=== PATIENT | female | born 1990 | race Caucasian/White ===

== ENCOUNTER 2016-02-16 17:23 | Emergency (ER) | payer BC, OTHER ==
[~2016-02-16] VITALS: Ht 170.2 cm; Wt 80.4 kg
[2016-02-16 17:28] VITALS: BP 135/79; PULSE 102; TEMP 36.7; O2SAT 97; Ht 170.2 cm; Wt 80.4 kg
[2016-02-16] MEDS ORDERED: CHOL1000 PO (17:36)
[2016-02-16] MEDS ORDERED: MULT-506 PO (17:36)
[2016-02-16] MEDS ORDERED: OMEG10007 PO (17:36)
--- NOTE | 2016-02-16 18:43 | EMERGENCY ROOM VISIT NOTE ---
History First contact with patient: 17:41 Chief Complaint: OTHER COMPLAINT Stated Complaint: BLUE HANDS/FINGERS,TINGLY IN LT FINGERS/ARM History of Present Illness The patient is a 26 year old female who presents to the Emergency Room with complaints of a cold and tingly sensation in her left forearm and hand. 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 The patient reports that at around 2 PM, she started to develop the above symptoms. The patient has not noticed any bruising or swelling about the elbow. The patient is [id number], and denies any pain. Review of Systems 6 system review was performed and was negative except for pertinent positives and negatives as indicated in history of present illness Past Medical/Surgical History Medical Problems: (1) Idiopathic Scoliosis (2) Polycystic ovarian syndrome Surgical Problems: (1) History of appendectomy Family History FH: cancer FH: diabetes mellitus FH: heart disease FH: hypertension Social History Smoking Status: Never Smoker Alcohol Use: none Marital Status: Occupation Status: employed Current/Historical Medications Scheduled Cholecalciferol (Vitamin D3), 1 TAB PO DAILY Fish Oil ([place]-3), 2 CAP PO DAILY Multivitamin (Multivitamin), 1 TAB PO DAILY Allergies Coded Allergies: No Known Allergies (Verified , 02/16/16) PER NURSING Physical Exam Vital Signs Date Time Temp Pulse Resp B/P Pulse Ox O2 Delivery O2 Flow Rate FiO2 02/16/16 17:28 36.7 102 20 135/79 97 Room Air Pain Rating (0-10): 0 Physical Exam CONSTITUTIONAL: Healthy and well nourished. Alert and oriented X 3 with positive affect. The patient does appear anxious. HEENT: Normocephalic, atraumatic. Pupils equal, round and reactive. NECK: Full active range of motion without discomfort. RESPIRATORY: Clear to auscultation bilaterally with no wheezing, crackles, rhonchi or stridor. CARDIOVASCULAR: Regular rate and rhythm with no murmurs, rubs or gallops. MUSCULOSKELETAL: Examination of the left upper extremity does not show any evidence for ecchymosis or edema of the antecubital space, elbow or proximal forearm. It is noted that the patient has a mottled appearance of bilateral hands with a capillary refill of approximately 4 seconds. She has no tenderness to palpation of the hand or fingers. She has full flexion and extension without discomfort. INTEGUMENTARY: No rash or other significant dermatologic conditions noted. NEUROLOGIC: No focal neurologic deficits noted. Bilateral hands and fingers are sensory intact. Medical Decision & Procedures ED Course Patient history and physical exam were performed. Nurse's notes were reviewed. Vital signs were reviewed and were normal. The patient was advised that I do not feel that her symptoms are being caused by the earlier venipuncture. She has no edema or ecchymosis near the site. I also showed her the discoloration of both hands. I asked if she has had any prior history of connective tissue disease or Raynaud's disease, and the patient denies. She denies any prior history of hand or feet pain and cold temperatures, or when holding cold beverages. The patient was encouraged to intermittently apply heat to her hands , and follow up with her PCP if the discoloration persists. She was instructed to return to the emergency department for progressively worsening pain, numbness or significant worsening appearance of the hands. The patient was happy with plan of care, and voiced understanding of all discharge instructions. Medical Decision See previous section Impression Primary Impression: Paresthesia of left upper extremity Additional Impression: Bilateral hand discoloration Departure Information Dispostion Home / Self-Care Condition GOOD Forms HOME CARE DOCUMENTATION FORM, IMPORTANT VISIT INFORMATION Patient Instructions A Signature Page, [email or web address] Additional Instructions Intermittently apply ice to the elbow region, and heat to both hands. Follow-up with your family doctor for any persistent symptoms, especially with discoloration of the fingers as they were today in the emergency department. Return to the emergency department for progressively worsening pain or further darkening appearance of the hands.
== END 2016-02-16 18:00 | disposition home or self-care (01) ==
LOC: C.EDB 17:24 → C.EDD 18:00
DX: R20.2 Paresthesia of skin (principal); L98.9 Disorder of the skin and subcutaneous tissue, unspecified; M41.20 Other idiopathic scoliosis, site unspecified; E28.2 Polycystic ovarian syndrome; Z80.9 Family history of malignant neoplasm, unspecified; Z83.3 Family history of diabetes mellitus; Z82.49 Family history of ischemic heart disease and other diseases of the circulatory system

== ENCOUNTER 2019-01-21 11:50 | Inpatient (IN) ==
[2019-01-21] MEDS ORDERED: miSOPROStoL 25 MCG TAB PV ONE (13:26)
--- NOTE | 2019-01-21 13:36 | Obstetrical Progress Note ---
Date of Service January 21, 2019 Subjective Admit Note 28 F P1001 admitted for induction of labor for post dates . Her GBS is negative. FHT Cat 1 not makayla. Cervix is 1/50/-3/vertex/posterior/soft. EFW [address] Cytotec 25 mcg for induction and ripening of cervix. Results & Data Vital Signs (Past 12 Hours) Vital Signs Temp Pulse Resp BP 01/21/19 12:23 103 H 125/81 01/21/19 12:12 36.8 C 110 H 20 133/87
--- NOTE | 2019-01-21 13:52 | Obstetrical Progress Note ---
Date of Service January 21, 2019 Subjective Cytotec 25 mcg placed vaginally FHT Cat 1 Results & Data Vital Signs (Past 12 Hours) Vital Signs Temp Pulse Resp BP 01/21/19 12:23 103 H 125/81 01/21/19 12:12 36.8 C 110 H 20 133/87
[2019-01-21 14:18] LABS: Hematocrit (blood only) 33.5 % (37-47); Hemoglobin 11.1 g/dL (12.0-16.0); Mean Corpuscular Hemoglobin 26.1 pg (25-34); Mean Corpuscular Volume 78.8 fL (80-100); RDW Coefficient of Variation 14.3 % (11.5-14.5); RDW Standard Deviation 40.6 fL (36.4-46.3); Red Blood Count 4.25 M/uL (4.2-5.4)
[2019-01-21 14:20] LABS: Mean Corpuscular Hgb Conc 33.1 g/dL (32-36); Platelet Count 143 K/uL (130-400)
[2019-01-21 14:21] LABS: Platelet Estimate Decreased (Normal)
--- NOTE | 2019-01-21 20:15 | Obstetrical Progress Note ---
Date of Service January 21, 2019 Physical Exam Genitourinary: Manual OB Exam: + cervical dilation 3 cm, + cervical effacement 50% and + station -2 OB Exam Monitor Tracing: + external FHT monitor used, + external uterine monitor used and + category I Results & Data Vital Signs (Past 12 Hours) Vital Signs Temp Pulse Resp BP 01/21/19 19:30 20 01/21/19 18:00 20 01/21/19 17:33 69 129/81 01/21/19 17:31 36.7 C 20 01/21/19 16:20 20 01/21/19 15:00 36.6 C 18 01/21/19 14:55 36.6 C 90 20 127/85 01/21/19 14:54 88 132/91 01/21/19 12:23 103 H 125/81 01/21/19 12:12 36.8 C 110 H 20 133/87
[2019-01-21] MEDS: LACTATED RINGER'S 1,000 ML IV PRN (23:07)
[2019-01-21] MEDS ORDERED: ePHEDrine sulfate 50 MG/ML AMP ONE (23:13)
[2019-01-21] MEDS ORDERED: fentaNYL citrate 100 MCG/2 ML VIAL ONE (23:13)
[2019-01-21] MEDS ORDERED: fentaNYL 2MCG/ML ROPIV 1.25MG/ML 100 ML BAG EPI ONE (23:14)
[2019-01-21] MEDS ORDERED: BUPIVACAINE 0.25% 30 ML VIAL ONE (23:14)
[2019-01-21] MEDS ORDERED: NALOXONE HCL 1 MG in SODIUM CHLORIDE 0.9% 1000ML 1,000 ML IV PRN (23:53)
[2019-01-21] MEDS ORDERED: ePHEDrine sulfate 50 MG/ML AMP IV PRN (23:53)
[2019-01-21] MEDS ORDERED: NALBUPHINE HCL INJ 10 MG/ML AMP IV PRN (23:53)
[2019-01-21] MEDS ORDERED: DiphenhydrAMINE HCL 50 MG/ML VIAL IV PRN (23:53)
[2019-01-21] MEDS ORDERED: ONDANSETRON INJ 2 MG/ML 2 ML VIAL IV PRN (23:53)
[2019-01-21] MEDS ORDERED: NALOXONE HCL 0.4 MG/1 ML VIAL/CARP IV PRN (23:53)
[2019-01-21] MEDS ORDERED: fentaNYL 2MCG/ML ROPIV 1.25MG/ML 100 ML BAG EPI PRN (23:53)
--- NOTE | 2019-01-21 23:53 | Anesthesiology Consultation ---
Date of Service January 21, 2019 Assessment & Plan Chart Review Chart Review: Patient NOT seen in Pre Admission Testing and Acceptable Risk for Labor Epidural Consults Requested none ASA ASA2 Proposed Anesthesia Anesthesia Type: Labor Epidural and CSE Risk / Benefits Reviewed With: PT / POA / Parent / Guardian, Accepts Plan and Informed Consent Obtained History Height/Weight Height: 5 ft 7.5 in Weight: 101.605 kg Allergies Allergy/AdvReac Type Severity Reaction Status Date / Time No Known Allergies Allergy Verified 08/10/17 14:43 Medications Home Medications Medication Instructions Recorded Confirmed Last Taken aspirin [Aspirin Low Dose] 81 mg PO DAILY 01/21/19 01/21/19 01/21/19 05:30 vit-iron fum-folic ac 1 tab PO DAILY 01/21/19 01/21/19 01/21/19 05:00 [ Vitamin] Active Medications Generic Name Dose Route Start Last Admin Trade Name Freq PRN Reason Stop Dose Admin Lactated Ringer's 1,000 mls @ 125 mls/hr 01/21/19 13:26 01/21/19 23:07 Lr IV 01/23/19 13:25 999 mls/hr .Q8H PRN Administration L&D Protocol Protocol NPO Date Last Intake of Fluids: 01/21/19 Time Last Intake of Fluids: 23:30 Date Last Intake of Solids: 01/21/19 Time Last Intake of Solids: 11:00 Past Medical History Medical History (Updated 01/21/19 @ 12:17 by Nina Alcocer RN) History of fracture of lower leg Exercise / Class Metabolic Activity II 4-5 Yardwork/Stairs/Walk up hill Past Anesthesia History No Hx of Anesthesia Complications and No Family Hx of Anesthesia Complications History of PONV No Hx of PONV and No Hx of Motion Sickness Social History Smoking Status: Never smoker Do You Dip or Chew Tobacco: No Hx Alcohol Use: No Hx Substance Use: No Review of Systems no chest pain or sob Physical Exam Vital Signs Last Vital Signs Temp 36.6 C 01/21/19 22:58 Pulse 85 01/21/19 23:50 Resp 18 01/21/19 22:58 BP 118/73 01/21/19 22:58 Pulse Ox 99 01/21/19 23:50 ENMT Mouth: no TMJ abnormality Thyromental Distance: > or= 3.5 Finger Breadths Mallampati Class: II Neck normal visual inspection Respiratory normal respiratory effort Auscultation: lungs clear to auscultation bilaterally Cardiovascular Rate/Rhythm: regular rate and regular rhythm Musculoskeletal Spine: normal cervical ROM Neurologic moves all extremities Psychiatric Orientation: alert and oriented x 3 Testing Laboratory Results 01/21/19 13:40
[2019-01-22] MEDS: LACTATED RINGER'S 1,000 ML IV PRN (00:24)
--- NOTE | 2019-01-22 00:41 | Obstetrical Progress Note ---
Date of Service January 22, 2019 Physical Exam Genitourinary: Manual OB Exam: + cervical dilation 4 cm, + cervical effacement 70%, + station -2 and + amniotic fluid clear OB Exam Monitor Tracing: + external FHT monitor used, + external uterine monitor used, + category I and + normal FHT variability AROM with amni-hook clear fluid Results & Data Vital Signs (Past 12 Hours) Vital Signs Temp Pulse Resp BP Pulse Ox 01/22/19 00:37 99 H 126/66 01/22/19 00:35 103 H 100 01/22/19 00:34 81 124/72 01/22/19 00:31 85 132/62 01/22/19 00:30 103 H 100 01/22/19 00:25 82 100 01/22/19 00:20 36.7 C 86 18 100 01/22/19 00:18 84 137/70 01/22/19 00:16 94 H 111/66 01/22/19 00:15 91 H 100 01/22/19 00:13 84 113/58 L 01/22/19 00:10 94 H 100 01/22/19 00:08 96 H 155/73 H 01/22/19 00:05 72 100 01/22/19 00:01 98 H 91 01/22/19 00:00 100 H 95 01/21/19 23:59 96 H 154/86 H 01/21/19 23:55 88 99 01/21/19 23:50 85 99 01/21/19 23:45 93 H 100 01/21/19 23:40 80 99 01/21/19 23:35 80 100 01/21/19 23:30 84 100 01/21/19 22:58 36.6 C 78 18 118/73 01/21/19 21:49 85 125/70 01/21/19 21:30 18 01/21/19 20:14 76 149/94 H 01/21/19 20:00 36.9 C 18 01/21/19 19:30 20 01/21/19 18:00 20 01/21/19 17:33 69 129/81 01/21/19 17:31 36.7 C 20 01/21/19 16:20 20 01/21/19 15:00 36.6 C 18 01/21/19 14:55 36.6 C 90 20 127/85 01/21/19 14:54 88 132/91
[2019-01-22] MEDS: OXYTOCIN 30 UNITS/500 ML BAG IV PRN ×2 (05:09→05:57)
--- NOTE | 2019-01-22 05:30 | Delivery Summary ---
Vaginal Delivery Summary Date of Service January 22 2019 Vaginal Delivery Summary Delivery Note Live male FLORENCIO over intact perineum with delayed cord clamping with Apgars 8/9 weight pending. Cord blood obtained and placenta delivered spontaneously and intact. Small second degree tear repaired with 4/0 Vicryl suture. EBL 250 ml. Final sponge needle and instrument count are correct. Mom and baby stable.
[2019-01-22] MEDS ORDERED: HYDROCORTISONE ACETATE 25 MG SUPP PR PRN (06:09)
[2019-01-22] MEDS ORDERED: BENZOCAINE 20% AER SPR 82.5 GM CAN EXT PRN (06:09)
[2019-01-22] MEDS ORDERED: ACETAMINOPHEN 325 MG TAB PO PRN (06:09)
[2019-01-22] MEDS ORDERED: OXYTOCIN 30 UNITS/500 ML BAG IV PRN (06:09)
[2019-01-22] MEDS ORDERED: MEASLES, MUMPS & RUBELLA VIRUS VIAL SQ ONE (06:09)
[2019-01-22] MEDS ORDERED: SUPERCREAM 0.870% 15 GM JAR EXT PRN (06:09)
[2019-01-22] MEDS ORDERED: DIPHTHERIA/TETANUS/PERTUSSIS 0.5 ML SYR/VIAL IM ONE (06:09)
--- NOTE | 2019-01-22 06:10 | Anesthesia Procedure Note ---
Date of Service January 22, 2019 Anesthesia Post Epidural Note Vital Signs Vital Signs: Temp Pulse Resp BP Pulse Ox 36.8 C 98 H 18 132/71 93 01/22/19 03:58 01/22/19 06:04 01/22/19 03:58 01/22/19 06:04 01/22/19 05:17 Pain Intensity Bilateral Abdomen: Pain Intensity: 1 Notes Mental Status: alert / awake / arousable and participated in evaluation Nausea / Vomiting: adequately controlled Pain: adequately controlled Airway Patency, RR, SpO2: stable & adequate BP & HR: stable & adequate Hydration State: stable & adequate Neuraxial Anesthesia: was administered and sensory block is resolving Anesthetic Complications: no major complications apparent and Pt Satisfied with anesthetic care Epidural: Removed without complications and With tip intact
[2019-01-22] MEDS: IBUPROFEN 600 MG TAB PO PRN ×3 (06:24→20:34)
[2019-01-22] MEDS: PRENATAL VITAMIN 1 TAB PO SCH (07:58)
[2019-01-22] MEDS: FERROUS SULFATE 325 MG TAB PO SCH (07:58)
[2019-01-22] MEDS: DOCUSATE SODIUM 100 MG CAP PO SCH ×2 (07:58→20:34)
[2019-01-23 06:47] LABS: Hemoglobin 10.2 g/dL (12.0-16.0); Mean Corpuscular Hemoglobin 26.4 pg (25-34); Mean Corpuscular Hgb Conc 32.9 g/dL (32-36); Mean Corpuscular Volume 80.3 fL (80-100); Platelet Count 144 K/uL (130-400); RDW Coefficient of Variation 14.3 % (11.5-14.5); RDW Standard Deviation 41.4 fL (36.4-46.3); Red Blood Count 3.86 M/uL (4.2-5.4); White Blood Count 11.39 K/uL (4.8-10.8)
[2019-01-23] MEDS: IBUPROFEN 600 MG TAB PO PRN ×3 (09:19→21:47)
[2019-01-23] MEDS: PRENATAL VITAMIN 1 TAB PO SCH (09:19)
[2019-01-23] MEDS: DOCUSATE SODIUM 100 MG CAP PO SCH ×2 (09:19→21:48)
[2019-01-23] MEDS: FERROUS SULFATE 325 MG TAB PO SCH (09:19)
--- NOTE | 2019-01-23 09:32 | Obstetrical Progress Note ---
Date of Service January 23, 2019 Physical Exam Physical Exam: abdomen soft and non tender no calf tenderness ambulating well vaginal bleeding scant hgb 11.2 Results & Data Vital Signs (Past 12 Hours) Vital Signs Temp Pulse Resp BP Pulse Ox 01/23/19 04:00 36.7 C 90 16 129/85 96 01/23/19 00:05 36.8 C 91 H 17 127/84 99
[2019-01-23 15:54] VITALS: O2SAT 99
[2019-01-23] MEDS ORDERED: bisacodyL 5 MG TABEC PO SCH (20:00)
[2019-01-24] MEDS ORDERED: bisacodyL 10 MG SUPP PR SCH (07:00)
[2019-01-24 07:08] LABS: Hematocrit (blood only) 32.3 % (37-47); Hemoglobin 10.6 g/dL (12.0-16.0)
[2019-01-24] MEDS: IBUPROFEN 600 MG TAB PO PRN (09:40)
[2019-01-24] MEDS: PRENATAL VITAMIN 1 TAB PO SCH (09:41)
[2019-01-24] MEDS: FERROUS SULFATE 325 MG TAB PO SCH (09:42)
--- NOTE | 2019-01-24 12:32 | Obstetrical Progress Note ---
Date of Service January 24, 2019 Physical Exam Physical Exam: abdomen soft and non tender no calf tenderness ambulating well vaginal bleeding scant hbg 10.6
[2019-01-24 13:36] VITALS: BP 132/83; PULSE 84; TEMP 97.3
== END 2019-01-24 14:32 | disposition home or self-care (01) | DRG 807 ==
LOC: 4S1 11:57 → 4S2 01-22 07:35

== ENCOUNTER 2021-06-03 14:24 | Inpatient (IN) ==
[2021-06-03] MEDS ORDERED: OXYTOCIN 30 UNITS/500 ML BAG IV PRN ×2 (15:09→19:22)
--- NOTE | 2021-06-03 15:12 | History & Physical Report ---
Date of Service June 03, 2021 Assessment & Plan (1) 40 weeks gestation of : Plan: Admit, routine labs, epidural AROM after Anticipte (2) Category II heart rate tracing during labor and delivery: Plan: Continue to monitor (3) COVID-19 affecting in second trimester: (4) Hyperthyroidism: Plan: Last TSH 0.31 wnl, not on medication Admission and Anticipated Discharge Date Admission Date: June 03, 2021 History of Present Illness Chief Complaint: Ctx Primary Care Provider: Russell Clement MD Patient is a 31-year-old -0-1-2 at 40 weeks and 1 day dated by 8-week ultrasound who presents to labor and delivery for ongoing contractions since 12 PM, contractions are becoming more regular and closer together now every 3 to 4 minutes. Denies leaking of fluid or vaginal bleeding. Notes good movement. Denies headache, blurry vision, right upper quadrant epigastric pain. Otherwise feeling well no other complaints at this time. Of note patient's obstetrical history is been complicated by COVID-19 in the second trimester, history of preeclampsia in her in 2018, as well as hyperthyroidism which she is not currently on medication for. She is also Rh negative and received RhoGAM on 03/06/2021. Allergies Allergy/AdvReac Type Severity Reaction Status Date / Time No Known Allergies Allergy Verified 08/10/17 14:43 Home Medications Medication Instructions Recorded Confirmed Type aspirin 81 mg tablet,delayed 81 mg PO DAILY 01/21/19 01/21/19 History release (Aspirin Low Dose) vitamins-iron fumarate 27 1 tab PO DAILY 01/21/19 01/21/19 History mg iron-folic acid 0.8 mg tablet ( Vitamin) Patient History Medical History History of fracture of lower leg Mild preeclampsia Preeclampsia Social History Smoking Status: Never smoker Second Hand Exposure: No; Hx Alcohol Use: No Hx Substance Use: No Preferred Language: Wallisian Communication Ability: Effective [employer] Teacher Required: No Beliefs That Will Affect Care: None marital status: Current Living Situation: Spouse Feels Safe at Home: Yes Assistive Devices: None OB History PSYCH COORDINATOR History See H+P Review of Systems All systems reviewed & are unremarkable except as noted in HPI & below Physical Exam Constitutional: WD/WN, vitals as above Respiratory: normal respiratory effort, lungs clear to auscultation Cardiovascular: RRR, no murmur, no edema Gastrointestinal (Abdomen): normal bowel sounds, soft, nontender, no hepatosplenomegaly Genitourinary: Vertex EFW 4200g Cx: 4-5/70/-1 bulging membranes Results & Data ([facility]) Vital Signs (Past 12 Hours) Vital Signs Pulse BP 06/03/21 14:34 88 130/74 Monitoring External Monitor FHT: baseline 155-160, moderate variability, no accelerations, variable decelerations, category 2 tracing Tocodynamometer Contractions every 3 to 5-minute
[2021-06-03] MEDS ORDERED: ePHEDrine sulfate 50 MG/ML AMP ONE (15:21)
[2021-06-03] MEDS ORDERED: fentaNYL citrate 100 MCG/2 ML VIAL ONE (15:22)
[2021-06-03] MEDS ORDERED: BUPIVACAINE 0.25% 30 ML VIAL ONE (15:22)
[2021-06-03] MEDS ORDERED: SODIUM CHLORIDE 0.9% INJ 10 ML VIAL ONE (15:22)
[2021-06-03] MEDS ORDERED: fentaNYL 2MCG/ML ROPIVACAINE 1.25MG/ML 100 ML BAG EPI ONE (15:23)
[2021-06-03] MEDS: LACTATED RINGER'S 1,000 ML IV PRN ×2 (15:27→16:43)
[2021-06-03 15:59] LABS: Alanine Aminotransferase 17 U/L (7-52); Albumin Globulin Ratio 1.3 (0.9-2); Albumin Level 3.7 gm/dl (3.4-5.0); Alkaline Phosphatase 141 U/L (34-104); Anion Gap 10 (3-11); Aspartate Aminotransferase 22 U/L (13-39); Bilirubin,Total 0.3 mg/dl (0.2-1.0); Blood Urea Nitrogen 12 mg/dl (6-23); Calcium 8.9 mg/dl (8.5-10.1); Carbon Dioxide 21 mmol/L (21-32); Chloride 105 mmol/L (98-107); Est GFR (African American) > 150.0 ml/min; Est GFR (Non-African American) 130.8 ml/min; Globulin 2.8 gm/dl (2.5-4.0); Glucose 85 mg/dl (70-99(Fasting)); Potassium 3.7 mmol/L (3.5-5.1); Sodium 136 mmol/L (136-145); Total Protein 6.5 gm/dl (6.0-8.3)
[2021-06-03 16:00] LABS: Hematocrit (blood only) 37.7 % (37-47); Mean Corpuscular Hemoglobin 29.2 pg (25-34); Mean Corpuscular Hgb Conc 34.5 g/dL (32-36); Mean Corpuscular Volume 84.7 fL (80-100); Mean Platelet Volume 12.3 fL (7.4-10.4); Platelet Count 167 K/uL (130-400); RDW Coefficient of Variation 12.6 % (11.5-14.5); RDW Standard Deviation 39.2 fL (36.4-46.3); Red Blood Count 4.45 M/uL (4.2-5.4); White Blood Count 11.15 K/uL (4.8-10.8)
--- NOTE | 2021-06-03 16:14 | Anesthesiology Consultation ---
Date of Service June 03, 2021 Assessment & Plan (1) Encounter for pre-operative examination: Chart Review Chart Review: Acceptable Risk for Labor Epidural History Height/Weight Height: 5 ft 7 in Weight: 80.286 kg Allergies Allergy/AdvReac Type Severity Reaction Status Date / Time No Known Allergies Allergy Verified 08/10/17 14:43 Medications Home Medications Medication Instructions Recorded Confirmed Last Taken aspirin 81 mg tablet,delayed 81 mg PO DAILY 01/21/19 01/21/19 01/21/19 05:30 release (Aspirin Low Dose) vitamins-iron fumarate 27 1 tab PO DAILY 01/21/19 01/21/19 01/21/19 05:00 mg iron-folic acid 0.8 mg tablet ( Vitamin) Active Medications Generic Name Dose Route Start Last Admin Trade Name Freq PRN Reason Stop Dose Admin Lactated Ringer's 1,000 mls @ 125 mls/hr 06/03/21 15:09 06/03/21 15:27 Lr IV 06/05/21 15:08 999 mls/hr .Q8H PRN Administration L&D Protocol Protocol Past Medical History Medical History History of fracture of lower leg Mild preeclampsia Preeclampsia Social History Smoking Status: Never smoker Hx Alcohol Use: No Hx Substance Use: No substance use type: does not use Physical Exam Vital Signs Last Vital Signs Temp 36.6 C 06/03/21 15:28 Pulse 88 06/03/21 14:34 Resp 20 06/03/21 15:28 BP 130/74 06/03/21 14:34 Testing Laboratory Results 06/03/21 15:18 06/03/21 15:18
[2021-06-03] MEDS ORDERED: ONDANSETRON INJ 2 MG/ML 2 ML VIAL IV PRN (16:42)
[2021-06-03] MEDS ORDERED: NALOXONE HCL 1 MG in SODIUM CHLORIDE 0.9% 1000ML 1,000 ML IV PRN (16:42)
[2021-06-03] MEDS ORDERED: NALOXONE HCL 0.4 MG/1 ML VIAL/CARP IV PRN (16:42)
[2021-06-03] MEDS ORDERED: fentaNYL 2MCG/ML ROPIVACAINE 1.25MG/ML 100 ML BAG EPI PRN (16:42)
[2021-06-03] MEDS ORDERED: ePHEDrine sulfate 50 MG/ML AMP IV PRN (16:42)
--- NOTE | 2021-06-03 17:33 | Labor Progress Brief Note ---
Date of Service June 03, 2021 Subjective Comfortable on epidural, no complaints Assessment & Plan (1) 40 weeks gestation of : Plan: Anticipte (2) Category II heart rate tracing during labor and delivery: Plan: Continue to monitor (3) COVID-19 affecting in second trimester: (4) Hyperthyroidism: Plan: Last TSH 0.31 wnl, not on medication Admission and Anticipated Discharge Date Admission Date: June 03, 2021 Physical Exam Physical Exam: heart tracing: Baseline 130, moderate variability, positive accelerations, no decelerations category 1 tracing Tocometer: Contractions every 4 to 5 minutes Cervix: 7/100/0, AROM performed with thick meconium Results & Data ([facility]) Vital Signs (Past 12 Hours) Vital Signs Temp Pulse Resp BP Pulse Ox 06/03/21 17:29 86 118/71 06/03/21 17:28 78 100 06/03/21 17:23 80 100 06/03/21 17:18 65 100 06/03/21 17:15 77 117/72 06/03/21 17:13 83 100 06/03/21 17:08 74 100 06/03/21 17:03 73 100 06/03/21 16:58 72 99 06/03/21 16:54 85 125/77 06/03/21 16:53 72 100 06/03/21 16:48 74 118/65 100 06/03/21 16:46 94 H 131/72 06/03/21 16:44 75 117/68 06/03/21 16:43 76 100 06/03/21 16:42 88 113/65 06/03/21 16:40 92 H 114/71 06/03/21 16:38 93 H 105/62 100 06/03/21 16:36 71 113/77 06/03/21 16:34 73 118/72 06/03/21 16:33 79 100 06/03/21 16:28 76 100 06/03/21 16:23 92 H 100 06/03/21 16:18 103 H 100 06/03/21 15:28 36.6 C 20 06/03/21 14:34 36.6 C 88 20 130/74
[2021-06-03] MEDS ORDERED: ACETAMINOPHEN 325 MG TAB PO PRN (19:22)
[2021-06-03] MEDS ORDERED: bisacodyL 10 MG SUPP PR PRN (19:22)
[2021-06-03] MEDS ORDERED: HYDROCORTISONE ACETATE 25 MG SUPP PR PRN (19:22)
[2021-06-03] MEDS ORDERED: DIPHTHERIA/TETANUS/PERTUSSIS 0.5 ML SYR/VIAL IM ONE (19:22)
[2021-06-03] MEDS ORDERED: BENZOCAINE 20% AER SPR 82.5 GM CAN EXT PRN (19:22)
--- NOTE | 2021-06-03 19:23 | Delivery Summary ---
Vaginal Delivery Summary Date of Service June 03, 2021 Vaginal Delivery Summary Delivery Note History synopsis: Patient is a 31-year-old -0-1-2 at 40 weeks and 1 day who presented to labor and delivery for ongoing contractions. She is admitted for early term labor as she was 4.5 cm dilated, with a category 2 tracing. She received an epidural for pain control. Artificial ruptures of membranes noted thick meconium, and patient was 7 cm. I was then called for delivery when patient had progressed to complete and was right to push Delivery Summary: Patient was placed in the dorsal lithotomy position. She was prepped and draped in the usual sterile fashion. Upon maternal pushing the head was delivered atraumatically followed by the anterior shoulders, posterior shoulders then the remainder of the infants body. The infants mouth and nose were bulb suction below the level of the perineum. A female infant was delivered at 1859, weight pending with APGARS of 8 at 1 minute and 10 at 5 minutes. The umbilical cord was clamped times two and cut. The infant was handed off to the awaiting nursing staff. Cord blood gases were obtained. The placenta delivered intact with three vessel cord at 1904. Placenta was sent to pathology. Thirty units of Pitocin were added to the IV fluid and allowed to run freely. Uterine massage was performed until uterus was deemed firm. Upon inspection of the perineum, vagina and cervix were intact. Second degree laceration was noted which was repaired with 3-0 vicryl in the usual fashion. Upon re-inspection the patient was hemostatic. Uterus again massaged and found to be firm. Needle and sponge counts were correct. Patient was stable and allowed to recover in L&D room. was stable and remained in room with mother in the Family Care Unit. EBL 400mls
[2021-06-03 19:29] LABS: Base Excess Cord Arterial Bld -4.1 mEq/L (-9-1.8); CO2 Cord Arterial Blood 67 mmHg (39.1-73.5); HCO3 Cord Arterial Blood 26 mmol/L (19.7-28.5); PO2 Cord Arterial Blood 27 mmHg (4.1-31.7)
[2021-06-03 19:30] LABS: Oxygen Sat Cord Arterial Blood < 60.0 % (<60)
[2021-06-03] MEDS: DOCUSATE SODIUM 100 MG CAP PO SCH (20:41)
--- NOTE | 2021-06-03 21:13 | Anesthesia Procedure Note ---
Date of Service June 03, 2021 Anesthesia Post Epidural Note Vital Signs Vital Signs: Temp Pulse Resp BP Pulse Ox 36.6 C 106 H 16 125/71 97 06/03/21 15:28 06/03/21 21:08 06/03/21 20:43 06/03/21 20:53 06/03/21 21:08 Notes Mental Status: alert / awake / arousable and participated in evaluation Nausea / Vomiting: adequately controlled Pain: adequately controlled Airway Patency, RR, SpO2: stable & adequate BP & HR: stable & adequate Hydration State: stable & adequate Neuraxial Anesthesia: was administered and sensory block is resolving Anesthetic Complications: no major complications apparent and Pt Satisfied with anesthetic care Epidural: Removed without complications and With tip intact Notes: Epidural site clean, dry and intact. No signs of edema, erythema or bruising at insertion site. Pt instructed to request anesthesia if she has residual lower extremity numbness or if she develops lower extremity pain or weakness, back pain or headache.
[2021-06-04] MEDS: IBUPROFEN 600 MG TAB PO PRN ×5 (00:13→21:03)
[2021-06-04 07:06] LABS: Hematocrit (blood only) 33.5 % (37-47); Hemoglobin 11.5 g/dL (12.0-16.0); Mean Corpuscular Hgb Conc 34.3 g/dL (32-36); Mean Corpuscular Volume 84.4 fL (80-100); Mean Platelet Volume 11.5 fL (7.4-10.4); Platelet Count 137 K/uL (130-400); RDW Coefficient of Variation 12.7 % (11.5-14.5); RDW Standard Deviation 39.1 fL (36.4-46.3); Red Blood Count 3.97 M/uL (4.2-5.4); White Blood Count 10.91 K/uL (4.8-10.8)
[2021-06-04] MEDS: PRENATAL VITAMIN 1 TAB PO SCH (08:30)
[2021-06-04] MEDS: DOCUSATE SODIUM 100 MG CAP PO SCH ×2 (08:30→21:03)
--- NOTE | 2021-06-04 09:48 | Obstetrical Progress Note ---
Date of Service June 04, 2021 Assessment & Plan (1) Normal course: PPD #1 pt doing well No complaint anticipate disch tomorrow Subjective Ambulation: ambulating normally Voiding: no voiding problems Passing Gas:: Yes Diet Tolerance:: regular diet Lochia:: Small Feeding Type:: breast feeding Review of Systems All systems reviewed & are unremarkable except as noted in HPI & below Physical Exam Constitutional WD/WN, vitals as above well developed and well nourished Eyes PERRL, conjunctivae normal, anicteric sclerae Neck trachea midline, no thyromegaly Respiratory normal respiratory effort, lungs clear to auscultation Auscultation: no crackles, no rales and no wheezes Cardiovascular RRR, no murmur, no edema Gastrointestinal (Abdomen) normal bowel sounds, soft, nontender, no hepatosplenomegaly Uterus is below umbilicus Musculoskeletal no cyanosis or clubbing, extremities motor strength 5/5 Skin no rashes, warm and dry Neurologic patellar DTR's 2+ bilat, sensation intact Psychiatric A+Ox3, euthymic affect Genitourinary normal external appearance Results & Data ([facility]) Vital Signs (Past 12 Hours) Vital Signs Temp Pulse Resp BP Pulse Ox 06/04/21 07:11 36.8 C 75 16 117/80 97 06/04/21 04:01 36.6 C 73 16 118/79 99 06/03/21 22:52 36.6 C 87 16 120/81 97
[2021-06-04] MEDS ORDERED: bisacodyL 5 MG TABEC PO SCH (20:00)
[2021-06-05 06:15] LABS: Hematocrit (blood only) 33.8 % (37-47); Hemoglobin 11.3 g/dL (12.0-16.0)
[2021-06-05] MEDS: IBUPROFEN 600 MG TAB PO PRN (08:01)
[2021-06-05] MEDS: DOCUSATE SODIUM 100 MG CAP PO SCH (08:01)
[2021-06-05] MEDS: PRENATAL VITAMIN 1 TAB PO SCH (08:01)
--- NOTE | 2021-06-05 10:33 | Obstetrical Progress Note ---
Date of Service June 05, 2021 Subjective Ambulation: ambulating normally Voiding: no voiding problems Passing Gas:: Yes Diet Tolerance:: regular diet Lochia:: Small Feeding Type:: breast feeding Current Pain Level(1-10): 0 doing well. plans for d/c Physical Exam Constitutional WD/WN, vitals as above Gastrointestinal (Abdomen) abdomen soft and non-tender. fundus firm Skin no rashes, warm and dry no edema. neg Alexey's Results & Data ([facility]) Vital Signs (Past 12 Hours) Vital Signs Temp Pulse Resp BP Pulse Ox 06/05/21 09:11 36.3 C L 74 16 120/79 99 06/05/21 08:00 36.3 C L 74 16 120/79 06/04/21 23:45 36.7 C 77 18 124/82 Laboratory Results all 06/03/21 06/03/21 06/03/21 15:18 15:18 15:18 WBC 11.15 H RBC 4.45 Hgb 13.0 Hct 37.7 MCV 84.7 MCH 29.2 MCHC 34.5 RDW Std Deviation 39.2 RDW Coeff of Jaqueline 12.6 Plt Count 167 MPV 12.3 H Cord ABG pH Cord ABG pCO2 Cord ABG pO2 Cord ABG HCO3 Cord ABG Base Excess Cord ABG O2 Sat Barometric Pressure Blood Gas Comments Sodium 136 Potassium 3.7 Chloride 105 Carbon Dioxide 21 Anion Gap 10 BUN 12 Creatinine 0.50 L Est Cr Clr Drug Dosing 181.0 Est GFR ( Amer) > 150.0 Est GFR (Non-Af Amer) 130.8 BUN/Creatinine Ratio 24.0 H Glucose 85 Calcium 8.9 Total Bilirubin 0.3 AST 22 ALT 17 Alkaline Phosphatase 141 H Total Protein 6.5 Albumin 3.7 Globulin 2.8 Albumin/Globulin Ratio 1.3 RPR Blood Type O Negative Antibody Screen NEGATIVE Screen 06/03/21 06/03/21 06/04/21 15:18 18:59 06:47 WBC RBC Hgb Hct MCV MCH MCHC RDW Std Deviation RDW Coeff of Jaqueline Plt Count MPV Cord ABG pH 7.20 Cord ABG pCO2 67 Cord ABG pO2 27 Cord ABG HCO3 26 Cord ABG Base Excess -4.1 Cord ABG O2 Sat < 60.0 Barometric Pressure 731.1 Blood Gas Comments DICKINSON Sodium Potassium Chloride Carbon Dioxide Anion Gap BUN Creatinine Est Cr Clr Drug Dosing Est GFR ( Amer) Est GFR (Non-Af Amer) BUN/Creatinine Ratio Glucose Calcium Total Bilirubin AST ALT Alkaline Phosphatase Total Protein Albumin Globulin Albumin/Globulin Ratio RPR Nonreactive Blood Type O Negative Antibody Screen Cancelled Screen Negative 06/04/21 06/05/21 06:47 05:56 WBC 10.91 H RBC 3.97 L Hgb 11.5 L 11.3 L Hct 33.5 L 33.8 L MCV 84.4 MCH 29.0 MCHC 34.3 RDW Std Deviation 39.1 RDW Coeff of Jaqueline 12.7 Plt Count 137 MPV 11.5 H Cord ABG pH Cord ABG pCO2 Cord ABG pO2 Cord ABG HCO3 Cord ABG Base Excess Cord ABG O2 Sat Barometric Pressure Blood Gas Comments Sodium Potassium Chloride Carbon Dioxide Anion Gap BUN Creatinine Est Cr Clr Drug Dosing Est GFR ( Amer) Est GFR (Non-Af Amer) BUN/Creatinine Ratio Glucose Calcium Total Bilirubin AST ALT Alkaline Phosphatase Total Protein Albumin Globulin Albumin/Globulin Ratio RPR Blood Type Antibody Screen Screen
[2021-06-05 11:47] LABS: HBSAG NON-REACTIVE (NON-REACTIVE)
--- NOTE | 2021-06-06 10:03 | Discharge Summary ---
Date of Service June 06, 2021 Admission HPI Per Admitting Provider Patient is a 31-year-old -0-1-2 at 40 weeks and 1 day dated by 8-week ultrasound who presents to labor and delivery for ongoing contractions since 12 PM, contractions are becoming more regular and closer together now every 3 to 4 minutes. Denies leaking of fluid or vaginal bleeding. Notes good movement. Denies headache, blurry vision, right upper quadrant epigastric pain. Otherwise feeling well no other complaints at this time. Of note patient's obstetrical history is been complicated by COVID-19 in the second trimester, history of preeclampsia in her in 2018, as well as hyperthyroidism which she is not currently on medication for. She is also Rh negative and received RhoGAM on 03/06/2021. Admission Exam (Per Admitting) Constitutional WD/WN, vitals as above Respiratory normal respiratory effort, lungs clear to auscultation Cardiovascular RRR, no murmur, no edema Gastrointestinal (Abdomen) normal bowel sounds, soft, nontender, no hepatosplenomegaly Discharge Data Consultations 06/03/21 15:09 Consult Anesthesiology Stat Hospital Course (1) Normal course: PPD #1 pt doing well No complaint anticipate disch tomorrow
== END 2021-06-05 11:00 | disposition home or self-care (01) | DRG 807 ==
LOC: 4S1 14:24 → 4E1 21:40